=== PATIENT | female | born 1955 | race Caucasian/White ===

== ENCOUNTER 2017-03-22 02:23 | Emergency (ER) | END 2017-03-22 07:21 | disposition home or self-care (01) | DX: F41.9 Anxiety disorder, unspecified (principal); F41.1 Generalized anxiety disorder; R40.2142 Coma scale, eyes open, spontaneous, at arrival to emergency department; R40.2252 Coma scale, best verbal response, oriented, at arrival to emergency department; R40.2362 Coma scale, best motor response, obeys commands, at arrival to emergency department; I10 Essential (primary) hypertension; Z79.82 Long term (current) use of aspirin | CPT/HCPCS: 96372; J2060; Z7502 ==

== ENCOUNTER 2017-06-22 04:41 | Emergency (ER) | payer OTHER ==
[~2017-06-22] VITALS: Ht 162.6 cm; Wt 93.6 kg
[~2017-06-22 04:41] MED LIST: ONDA4TAB14 PO
[2017-06-22 04:44] VITALS: Ht 162.6 cm; Wt 93.6 kg
[2017-06-22 05:43] LABS: BASOPHILS % 0.6 % (0.0-2.0); EOSINOPHILS # 0.2 10^3/ul (0.0-0.5); EOSINOPHILS % 2.4 % (0.0-7.0); HEMATOCRIT 39.5 % (37.0-47.0); HEMOGLOBIN 12.9 g/dl (12.0-16.0); LYMPHOCYTES # 1.9 10^3/ul (0.8-2.9); LYMPHOCYTES % 26.7 % (15.0-51.0); MEAN CORPUSCULAR HEMOGLOBIN 28.9 pg (29.0-33.0); MEAN CORPUSCULAR HGB CONC 32.7 g/dl (32.0-37.0); MEAN CORPUSCULAR VOLUME 88.6 fl (82.0-101.0); MEAN PLATELET VOLUME 10.9 fl (7.4-10.4); MONOCYTE # 0.6 10^3/ul (0.3-0.9); NEUTROPHIL # 4.4 10^3/ul (1.6-7.5); PLATELET COUNT 192 10^3/UL (140-415); RED BLOOD COUNT 4.46 10^6/ul (4.20-5.40); RED CELL DISTRIBUTION WIDTH 12.8 % (11.5-14.5); WHITE BLOOD COUNT 7.1 10^3/ul (4.8-10.8)
--- NOTE | 2017-06-22 05:47 | RADRPT ---
PROCEDURE: XR Chest. CLINICAL INDICATION: Chest Pain. TECHNIQUE: Portable single view of the chest COMPARISON: None. FINDINGS: Top normal heart size. Aortic calcification. Subsegmental atelectasis of the left lung base. No acut e infiltrate, pleural effusion, or overt congestive heart failure is seen. No acute bony abnormality . IMPRESSION: No acute pulmonary disease. Aortic atherosclerosis. RPTAT: [facility] Brianne Canas Physician Date Time Electronically viewed and signed by Brianne Canas, Physician on 06/22/2017 05:47 LE/
[2017-06-22] MEDS ORDERED: LOSA1TAB3 PO (05:48)
[2017-06-22] MEDS ORDERED: ASPI-535 PO (05:48)
[2017-06-22] MEDS ORDERED: IBUP400T22 PO (05:48)
[2017-06-22] MEDS ORDERED: PANT40TA4 PO (05:48)
[2017-06-22 06:04] LABS: ANION GAP 6 (8-16); BLOOD UREA NITROGEN 21 mg/dl (7-20); CALCIUM 8.9 mg/dl (8.4-10.2); CARBON DIOXIDE 30 mmol/L (21-31); CHLORIDE 107 mmol/L (97-110); CREATININE 0.66 mg/dl (0.44-1.00); GLUCOSE 108 mg/dl (70-220); POTASSIUM 3.4 mmol/L (3.5-5.1); SODIUM 140 mmol/L (135-144)
[2017-06-22 06:17] LABS: TROPONIN-I < 0.012 ng/ml (0.00-0.12)
[2017-06-22] MEDS ORDERED: POTASSIUM CHLORIDE (SR) 20 MEQ TAB PO ONE (06:30)
--- NOTE | 2017-06-22 06:31 | ERD ---
ER Documentation Chief Complaint Date/Time DATE: 06/22/17 TIME: 06:31 Chief Complaint ANA LAURA RA881 FROM HOME,C/O DIZZINESS HPI Patient is a 61-year-old female with hypertension who presents with high blood pressure. She said that every night she feels like she gets high blood pressure and had a panic attack because it was too high. She said that it was 180/100 last night. She is taking clonidine for her blood pressure. She says that she also "feels cold". She says that she has had the symptoms for "a long time" which she says was approximately 1 year. She has dizziness as well. Upon review of old medical records this is the patient's third visit to the ER since 2013. She does have a primary doctor. ROS All systems reviewed and are negative except as per history of present illness. Medications Home Meds Reported Medications Pantoprazole* (Pantoprazole*) 40 Mg Tablet.dr, 40 MG PO QHS, TAB 06/22/17 Ibuprofen* (Ibuprofen*) 400 Mg Tablet, 400 MG PO Q6H Y for PAIN, TAB 06/22/17 Aspirin Ec (Aspir 81) 81 Mg Tablet.dr, 81 MG PO DAILY, #30 TAB 06/22/17 Losartan/Hydrochlorothiazide (Hyzaar 50-12.5 Tablet) 1 Each Tablet, 1 EACH PO DAILY, TAB 06/22/17 Discontinued Scripts Ondansetron (Ondansetron Odt) 4 Mg Tab.rapdis, 4 MG PO Q6H Y for NAUSEA AND/OR VOMITING, #10 TAB Prov:PER FELIZ MD 03/22/17 Allergies Allergies: Coded Allergies: amoxicillin (Unverified Allergy, Mild, RASH, 06/22/17) amlodipine (Unverified Allergy, Unknown, 06/22/17) PMhx/Soc History of Surgery: Yes (APPENDECTOMY, B/L EYES, B/L ANKLE, VEIN STRIP) Anesthesia Reaction: No Hx Neurological Disorder: No Hx Respiratory Disorders: No Hx Cardiac Disorders: Yes (HTN, HYPERLIPIDEMIA) Hx Psychiatric Problems: Yes (SEVERE ANXIETY W/ PANIC ATTACKS) Hx Miscellaneous Medical Probl: No Hx Alcohol Use: No Hx Substance Use: No Hx Tobacco Use: No Smoking Status: Never smoker FmHx Family History: No diabetes Physical Exam Vitals Vital Signs Date Time Temp Pulse Resp B/P Pulse Ox O2 Delivery O2 Flow Rate FiO2 06/22/17 06:40 98.2 65 20 139/71 94 Room Air 06/22/17 04:55 63 20 142/73 94 Room Air 06/22/17 04:44 98.2 73 18 143/79 96 Physical Exam Const: No acute distress Head: Atraumatic Eyes: Normal Conjunctiva ENT: Normal External Ears, Nose and Mouth. Neck: Full range of motion..~ No meningismus. Resp: Clear to auscultation bilaterally Cardio: Regular rate and rhythm, no murmurs Abd: Soft, non tender, non distended. Normal bowel sounds Skin: No petechiae or rashes Back: No midline or flank tenderness Ext: No cyanosis, or edema Neur: Awake and alert, no slurred speech, cranial nerves II through XII are intact, strength is 5 out of 5 in all 4 extremities Psych: Normal Mood and Affect Result Diagram: 06/22/1752706/22/17527 Results 24 hrs Laboratory Tests Test 06/22/17 05:28 White Blood Count 7.110^3/ul Red Blood Count 4.4610^6/ul Hemoglobin 12.9g/dl Hematocrit 39.5% Mean Corpuscular Volume 88.6fl Mean Corpuscular Hemoglobin 28.9pg Mean Corpuscular Hemoglobin Concent 32.7g/dl Red Cell Distribution Width 12.8% Platelet Count 29967^3/UL Mean Platelet Volume 10.9fl Neutrophils % 62.0% Lymphocytes % 26.7% Monocytes % 8.0% Eosinophils % 2.4% Basophils % 0.6% Nucleated Red Blood Cells % 0.0/100WBC Neutrophils # 4.410^3/ul Lymphocytes # 1.910^3/ul Monocytes # 0.610^3/ul Eosinophils # 0.210^3/ul Basophils # 0.010^3/ul Nucleated Red Blood Cells # 0.010^3/ul Sodium Level 140mmol/L Potassium Level 3.4mmol/L Chloride Level 107mmol/L Carbon Dioxide Level 30mmol/L Anion Gap 6 Blood Urea Nitrogen 21mg/dl Creatinine 0.66mg/dl Glucose Level 108mg/dl Calcium Level 8.9mg/dl Troponin I < 0.012ng/ml Current Medications Medications (Trade) Dose Ordered Sig/Ele Route PRN Reason Start Time Stop Time Status Last Admin Dose Admin Potassium Chloride (Klor-Con 20) 40 meq ONCE ONCE PO 06/22/17 06:30 06/22/17 06:31 DC 06/22/17 06:43 Procedures/MDM EKG read by me: Rate/Rhythm: Regular rate and rhythm at a rate of 61 Intervals: Normal Impression: No evidence of ischemia or arrhythmia Patient is a 61-year-old female who presents with hypertension and dizziness. Her blood pressure in the ER was 130/80 which is improved from her blood pressure at home. The patient has a mild hypokalemia with a potassium of 3.4 and will be given potassium by mouth prior to discharge. I see no signs of stroke or serious bacterial infection. I doubt acute coronary syndrome. I believe outpatient management is appropriate. I doubt hypertensive emergency but the patient will need close follow-up with her primary doctor within 24-48 hours for repeat blood pressure check and discussion of blood pressure medication. The patient can return for any worsening symptoms. Departure Diagnosis: Primary Impression: Hypokalemia Additional Impressions: Dizziness Hypertension Hypertension type: essential hypertension Qualified Code: I10 - Essential hypertension Condition: Fair Patient Instructions: High Blood Pressure (Hypertension), Dizziness, Unk Cause Additional Instructions: Call your primary care doctor TOMORROW for an appointment during the next 1-2 days.See the doctor sooner or return here if your condition worsens before your appointment time. MICAELA STOLL MD Jun 22, 2017 06:31
[2017-06-22 06:40] VITALS: BP 139/71; PULSE 65; RESP 20; TEMP 98.2
== END 2017-06-22 07:35 | disposition home or self-care (01) ==
LOC: E/R 04:41
DX: E87.6 Hypokalemia (principal); R40.2252 Coma scale, best verbal response, oriented, at arrival to emergency department; I10 Essential (primary) hypertension; R40.2142 Coma scale, eyes open, spontaneous, at arrival to emergency department; R40.2362 Coma scale, best motor response, obeys commands, at arrival to emergency department; Z79.82 Long term (current) use of aspirin
CPT/HCPCS: 36415; 71010; 80048; 84484; 85025; 93005; Z7502; Z7610